=== PATIENT | male | born 1985 | race Caucasian/White ===

== ENCOUNTER 2021-06-25 13:53 | Emergency (ER) | payer MEDICAID, SELFPAY ==
[2021-06-25 13:54] VITALS: BP 128/88; PULSE 107; RESP 18; TEMP 36.6; O2SAT 97; BMI 30.7
--- NOTE | 2021-06-25 14:29 | EX.ED.DYSGE1 ---
HPI History of Present Illness Chief Complaint: Nausea/Vomiting Informant: patient Narrative Narrative: 35-year-old male presenting to the emergency room with vomiting and diarrhea. Patient states he woke up this morning with the symptoms. He denies any URI symptoms or fevers. He notes abdominal cramping but not pain. He notes he had a Sals[place] steak for dinner last night and last time he ate that it made him sick. No recent antibiotics. No exposure to people with the same. PFSH PFS Medical History (Updated 06/25/21 @ 16:[address] Aleks Monaco DO) Alcohol abuse Asthma Irregular heart beat Smoker Substance abuse Home Medications ciprofloxacin HCl [Cipro] 500 mg PO BID #10 tab 06/25/21 [Rx Last Taken Unknown] ondansetron 4 mg PO Q6H PRN PRN #20 tab 06/25/21 [Rx Last Taken Unknown] Allergy/AdvReac Type Severity Reaction Status Date / Time No Known Allergies Allergy Verified 06/25/21 13:55 Social History (Updated 06/25/21 @ 14:[address] Aleks Monaco DO) current gender identity: male Smoking Status: Current every day smoker tobacco type: cigarettes substance use type: does not use ROS ROS ED Constitutional Constitutional ED: Denies chills, fever(s) or weight loss Eyes Eyes: Denies change in vision or diplopia ENT ENT ED: Denies ear pain, rhinorrhea or sore throat Cardiovascular Cardiovascular: Denies chest pain, orthopnea, palpitations or racing heartbeat Respiratory/Chest Respiratory/Chest: Denies cough, dyspnea or orthopnea Gastrointestinal Gastrointestinal: Reports diarrhea, nausea, vomiting and other Details: abdominal cramping Genitourinary Genitourinary ED: Denies dysuria, hematuria or urinary frequency Musculoskeletal Musculoskeletal: Denies arthralgias or myalgias Integumentary Denies abscess or rash Neurologic Neurologic: Denies headache(s) or weakness Psychiatric Psychiatric: Denies anxiety, depression, suicidal ideation or suicidal thoughts Endocrine Endocrinology: Denies polydipsia, polyphagia or polyuria Allergic/Immunologic Allergic/Immunologic ED: Denies mouth swelling, tongue swelling or urticaria EXAM Physical Exam Narrative Exam Narrative: Patient appears that he does not feel well Const Vital Signs: 06/25/21 13:54 06/25/21 15:58 Temperature 98 F Temperature Source Temporal Pulse Rate 107 H 88 Respiratory Rate 18 17 Blood Pressure 128/88 H 131/94 H Blood Pressure Mean 101 106 Pulse Ox 97 98 Oxygen Delivery Method Room Air Room Air Positive well nourished and well developed General Appearance ED: well developed HEENT Reports normocephalic, head/scalp atraumatic, TM's clear and moist mucous membranes Negative for trauma Tympanic Membrane ED: Yes TM's clear Eyes PERRL and EOMs intact bilaterally Neck no lymphadenopathy, supple and no JVD Resp normal respiratory effort and clear to auscultation bilaterally Cardio regular rate and no murmurs Rate: tachycardic GI non-tender Inspection: Negative for abdominal distention Auscultation: hyperactive bowel sounds Palpation: soft and tender RLQ and RUQ; Negative for guarding Back/Spine no CVA tenderness and normal ROM Extremity normal to inspection General Extremety ED: Negative for edema General Extremity: Negative for edema Neuro oriented x3 and CN's II-XII intact bilaterally Sensorium / Orientation: alert Motor Exam: strength 5/5 throughout Psych mental status grossly normal Mood & Affect: Negative for depressed or tearful Skin no rashes or lesions noted and no wounds MDM MDM MDM Narrative Medical decision making narrative: Basic blood work showed a white count of 20.8 with 90.5 neutrophils. CO2 22 lipase is 65. Stool was sent for studies and shows positive fecal leukocytes. CT of the abdomen pelvis was obtained and does not demonstrate any evidence of appendicitis or colitis. Patient received IV fluids and Zofran and has been tolerating oral fluids well. I will write him for Cipro as well as for Zofran. We will await stool cultures. Return if worsening or concerns Lab Data Attestation: I reviewed the patient's lab results. Labs: Laboratory Results - last 24 hr 06/25/21 06/25/21 14:35 14:35 WBC 20.8 H RBC 5.73 Hgb 17.7 H Hct 52.3 MCV 91.3 MCH 30.9 MCHC 33.8 RDW Std Deviation 43.7 RDW Coeff of Kalee 13.0 Plt Count 281 MPV 10.9 Immature Gran % (Auto) 0.500 Neut % (Auto) 90.5 H Lymph % (Auto) 4.3 L [place] % (Auto) 3.8 Eos % (Auto) 0.5 Baso % (Auto) 0.4 Absolute Neuts (auto) 18.8 H Absolute Lymphs (auto) 0.89 Nucleated RBC % 0 Sodium 136 Potassium 4.1 Chloride 106 Carbon Dioxide 22.0 Anion Gap 8 BUN 19 H Creatinine 1.04 Estim Creat Clear Calc 106.59 Est GFR (MDRD) Af Amer 105 Est GFR (MDRD) Non-Af 87 BUN/Creatinine Ratio 18.3 Glucose 133 H Calcium 9.7 Total Bilirubin 0.60 AST 17 ALT 36 Alkaline Phosphatase 132 H Total Protein 8.9 H Albumin 4.4 Globulin 4.5 H Albumin/Globulin Ratio 1.0 Lipase 65 L Radiography Diagnostic Testing: Clinical Impression(s) from Imaging Studies Abdomen/Pelvis CT 06/25/21 15:15 IMPRESSION: Findings which may be consistent with nonspecific gastroenteritis. Electronically Signed: Eren Matthew MD at 16:15 EST Reading Location ID and State: [address] [place] [address] , Service support , Discharge Plan Triage Chief Complaint: Nausea/Vomiting ED Provider: Aleks Monaco Dx/Rx/DC Orders Clinical Impression: Gastroenteritis Instructions: ED Vomiting and Diarrhea ... Prescriptions: New ciprofloxacin HCl [Cipro] 500 mg tablet 500 mg PO BID Qty: 10 RF: 0 ondansetron [ondansetron] 4 MG tablet 4 mg PO Q6H PRN PRN (Reason: Nausea) Qty: 20 RF: 0 Primary Care Provider: Care Physician,No Primary Referrals: Care Physician,No Primary [Primary Care Provider] - Leonardo Little MD [STAFF PHYSICIAN] - As Needed (for primary care) Disposition Disposition: Home, Self Care
[2021-06-25 14:46] LABS: Absolute Lymphocyte Count 0.89 X10^3/uL (0.83-4.51); Absolute Neutrophil Count 18.8 X10^3/uL (2.0-7.7); Basophil# 0.09 X10^3/uL; Basophil% 0.4 % (0-1); Eosinophils% 0.5 % (0-5); Hematocrit 52.3 % (40-54); Hemoglobin 17.7 g/dL (13.0-16.5); Lymphocyte # 0.89 X10^3/ul (0.83-4.51); Lymphocyte % 4.3 % (19-41); Mean Corp Hgb Conc 33.8 g/dL (32-36); Mean Corpuscular Hgb 30.9 pg (27.0-32.0); Mean Corpuscular Volume 91.3 fL (80-94); Mean Platelet Vol. 10.9 fl (6.2-12.0); Monocyte% 3.8 % (0-10); NRBC Flagged by Analyzer 0 % (0-5); Neutrophil % 90.5 % (47-70); POSITIVE MORPHOLOGY YES; Platelet Count 281 K/mm3 (150-450); RBC Distribution Width SD 43.7 fl (35.1-43.9); Red Blood Count 5.73 M/mm3 (4.6-6.2); White Blood Count 20.8 K/mm3 (4.4-11.0)
[2021-06-25] MEDS: 0.9% Normal Saline 1,000 ML 1000 ML IV (14:50)
[2021-06-25] MEDS: Ondansetron 4 MG/2 ML Vial IV (14:50)
[2021-06-25 15:05] LABS: AST(SGOT) 17 U/L (15-37); Alanine Aminotransfer ALT/SGPT 36 U/L (16-61); Albumin, Serum 4.4 g/dL (3.2-5.0); Alkaline Phosphatase 132 U/L (45-117); Anion Gap 8 (5-15); BUN 19 mg/dL (7-18); BUN/Creat Ratio 18.3 RATIO (10-20); Calcium,Total 9.7 mg/dL (8.5-10.1); Chloride 106 mmol/L (98-107); Creatinine, Serum 1.04 mg/dL (0.70-1.30); Differential Indicated SCAN CRITERIA MET; EST Glomerular Filtration Rate 87 mL/min (>60); Est Glom Filt Rate - Afr Amer 105 mL/min (>60); Estimated Creatinine Clearance 106.59 ml/min; Globulin 4.5 g/dL (2.2-4.2); Glucose 133 mg/dL (74-106); Lipase 65 U/L (73-393); Potassium 4.1 mmol/L (3.5-5.1); Protein, Total 8.9 g/dL (6.4-8.2); Sodium Level 136 mmol/L (136-145)
--- NOTE | 2021-06-25 15:15 | CT_ITS ---
STUDY: CT ABDOMEN AND PELVIS WITH CONTRAST REASON FOR EXAM: Male, 35 years old. abdominal pain RADIATION DOSAGE (If Supplied By Facility): CTDIvol = ( 17.03 ) mGy, DLP = ( 1101.28 ) mGycm TECHNIQUE: Transaxial images were obtained from the dome of the diaphragm to the symphysis pubis without oral contrast. IV 100mL Isovue-370 was administered. Sagittal and coronal images were reconstructed. Individualized dose optimization techniques were used for this CT. COMPARISON: None. FINDINGS: The visualized lung bases are unremarkable. The visualized portions of the heart are within normal limits. Normal liver. Normal gallbladder and extrahepatic biliary system. Normal spleen. Normal pancreas. Normal bilateral adrenal glands. Normal right kidney. Normal left kidney. There is very mild thickening of the gastric folds and folds of the proximal to mid small bowel which may be consistent with nonspecific gastroenteritis. No evidence for small bowel obstruction.. Normal colon. The appendix is visualized and appears normal. Normal abdominal aorta. Normal inferior vena cava. Normal retroperitoneum. Incompletely distended thick-walled bladder likely of no significance Normal abdominal wall. Normal osseous structures. CT/Abdomen/Pelvis W IV Cont ONLY IMPRESSION: Findings which may be consistent with nonspecific gastroenteritis. Electronically Signed: Eren Matthew MD at 16:15 EST ,
[2021-06-25 15:58] VITALS: BP 131/94; PULSE 88; RESP 17; O2SAT 98
== END 2021-06-25 16:43 | disposition home or self-care (01) ==
PROVIDERS: Emergency Provider Emergency Medicine; Visit Provider Emergency Medicine
DX: K52.9 Noninfective gastroenteritis and colitis, unspecified (principal); F17.210 Nicotine dependence, cigarettes, uncomplicated
CPT/HCPCS: 74177; 80053; 83630; 83690; 85025; 87177; 87209; 87493; 87506; 96361; 96374; 99284; J7030; Q9967; A4216; J2405

== ENCOUNTER 2021-10-30 10:00 | Emergency (ER) | payer MEDICAID, SELFPAY ==
[2021-10-30] VITALS (8 sets, daily range): BP systolic 137–154; BP diastolic 88–101; PULSE 67–81; RESP 15–20; TEMP 36.7; O2SAT 95–98; BMI 31.8
--- NOTE | 2021-10-30 10:17 | ED.VIS.DYS ---
HPI History of Present Illness Chief Complaint: Shortness of Breath Informant: patient Onset/Context/Timing Onset: Today Context: sudden Timing: Waxes and wanes Quality: Positive for Dyspnea on exertion Worsened by: Exertion Relieved by: other (Drinking water) Associated Symptoms cough and green sputum Chest Pain: Positive for Pressure Narrative Narrative: Patient presents with shortness of breath that began today. Patient states that he woke up with the shortness of breath today. Patient states has been constant throughout the day. Patient states his breathing is worse with any exertion. Patient admits to a pressure sensation in his chest. Patient states that it feels like someone is standing on his chest. Patient states his breathing is worse with any exertion. Patient states it is better whenever he drinks water. Patient admits to a sore throat. Patient denies any fevers or chills. Patient admits to a cough with some dark green sputum. Patient denies any exposures to any sick contacts. PFS PFS Medical History (Updated 10/30/21 @ 13:[address] Leonardo Robbins DO) Alcohol abuse Asthma Irregular heart beat Smoker Substance abuse Home Medications ciprofloxacin HCl [Cipro] 500 mg PO BID #10 tab 06/25/21 [Rx Last Taken Unknown] ondansetron 4 mg PO Q6H PRN PRN #20 tab 06/25/21 [Rx Last Taken Unknown] albuterol sulfate [Ventolin HFA] 1 - 2 puff INHALATION Q4H PRN PRN #1 inhaler 10/30/21 [Rx Last Taken Unknown] Allergy/AdvReac Type Severity Reaction Status Date / Time No Known Allergies Allergy Verified 10/30/21 10:01 Surgical History (Updated 10/30/21 @ 10:[address] Leonardo Robbins DO) Hx of arthroscopic knee surgery Social History Smoking Status: Current every day smoker tobacco type: cigarettes substance use type: does not use ROS ROS ED Constitutional Constitutional ED: Denies chills or fever(s) Eyes Eyes: Denies blurry vision or change in vision ENT ENT ED: Reports sore throat; Denies rhinorrhea Cardiovascular Cardiovascular: Reports chest pain; Denies palpitations Respiratory/Chest Respiratory/Chest: Reports cough and dyspnea Gastrointestinal Gastrointestinal: Denies nausea or vomiting Genitourinary Genitourinary ED: Denies dysuria or hematuria Musculoskeletal Musculoskeletal: Denies back pain or neck pain Integumentary Denies abscess or rash Neurologic Neurologic: Denies headache(s) or weakness Allergic/Immunologic Allergic/Immunologic ED: Denies mouth swelling or urticaria EXAM Physical Exam Const Vital Signs: 10/30/21 10:01 10/30/21 10:04 10/30/21 10:12 Temperature 98.1 F 98.1 F Temperature Source Temporal Temporal Pulse Rate 81 81 Respiratory Rate 20 H 20 H Respiratory Effort Respiratory Depth Respiratory Pattern Blood Pressure 137/88 H 137/88 H Blood Pressure Mean 104 104 Pulse Ox 98 97 97 Oxygen Delivery Method Room Air Room Air Room Air 10/30/21 10:13 10/30/21 10:28 10/30/21 12:09 Temperature Temperature Source Pulse Rate 67 Respiratory Rate 15 16 Respiratory Effort Non-Labored Short of Breath Respiratory Depth Normal Respiratory Pattern Normal Blood Pressure Blood Pressure Mean Pulse Ox Oxygen Delivery Method Room Air 10/30/21 12:14 Temperature Temperature Source Pulse Rate 71 Respiratory Rate 20 H Respiratory Effort Respiratory Depth Respiratory Pattern Blood Pressure 137/92 H Blood Pressure Mean 107 Pulse Ox 95 Oxygen Delivery Method Room Air Positive well nourished and well developed General Appearance ED: well developed HEENT Reports moist mucous membranes Neck supple and no JVD Resp normal respiratory effort Auscultation: diminished lung sounds diffuse Cardio regular rate, regular rhythm and no murmurs GI normal to inspection, nondistended, normoactive bowel sounds and non-tender Palpation: soft Extremity normal to inspection General Extremety ED: Negative for edema or tenderness General Extremity: Negative for edema Neuro oriented x3, CN's II-XII intact bilaterally and no sensory deficits noted Sensorium / Orientation: alert Motor Exam: strength 5/5 throughout Psych mental status grossly normal Skin no rashes or lesions noted MDM MDM MDM Narrative Medical decision making narrative: Patient was given a DuoNeb aerosol here. EKG was obtained. On my interpretation, it showed a normal sinus rhythm with a rate of 61. IN interval, QRS interval, and QTc intervals were all normal. [place] was normal. There are no acute ST or T wave changes. Portable 1 view chest x-ray was obtained. On my interpretation, lung [place] are clear. There is normal cardiac silhouette. Bony thorax is normal. There is no acute process noted. Radiologist also interpreted the x-ray and agrees. CBC and comprehensive metabolic profile were obtained and were essentially within normal limits. Patient felt better after aerosol treatment. Patient was given a prescription for an albuterol inhaler. Patient was instructed to follow-up with his primary care physician in 5 to 7 days. Patient understood and was agreeable with plan. All questions were answered. Lab Data Attestation: I reviewed the patient's lab results. Labs: Laboratory Results - last 24 hr 10/30/21 10/30/21 10:33 10:33 WBC 8.6 RBC 4.70 Hgb 14.5 Hct 43.4 MCV 92.3 MCH 30.9 MCHC 33.4 RDW Std Deviation 43.7 RDW Coeff of Kalee 12.8 Plt Count 240 MPV 10.7 Immature Gran % (Auto) 0.200 Neut % (Auto) 69.2 Lymph % (Auto) 20.1 [place] % (Auto) 7.8 Eos % (Auto) 1.6 Baso % (Auto) 1.1 H Absolute Neuts (auto) 5.9 Absolute Lymphs (auto) 1.72 Nucleated RBC % 0 Sodium 137 Potassium 3.9 Chloride 104 Carbon Dioxide 27.0 Anion Gap 6 BUN 20 H Creatinine 0.85 Estim Creat Clear Calc 129.19 Est GFR (MDRD) Af Amer 132 Est GFR (MDRD) Non-Af 109 BUN/Creatinine Ratio 23.6 H Glucose 100 Calcium 8.6 Total Bilirubin 0.30 AST 24 ALT 35 Alkaline Phosphatase 103 Troponin I High Sens 3 Total Protein 7.4 Albumin 3.7 Globulin 3.7 Albumin/Globulin Ratio 1.0 Radiography Chest X-Ray - ED: 1 View, Read by ED Physician, Read by Radiologist and No Acute Disease Diagnostic Testing: Clinical Impression(s) from Imaging Studies Chest X-Ray 10/30/21 10:40 IMPRESSION: Normal x-ray examination of the chest. Electronically Signed: Rafy Segal MD at 11:08 EDT , EKG Initial EKG: Attestation: I personally reviewed and interpreted this EKG as follows: Interpretation: Sinus Rhythm (61) and No Acute Injury Pattern Discharge Plan Triage Chief Complaint: Shortness of Breath ED Provider: Leonardo Robbins Dx/Rx/DC Orders Clinical Impression: Viral upper respiratory tract infection Instructions: ED URI, Viral, No Abx (Adult) Prescriptions: New albuterol sulfate [Ventolin HFA] 1 INHALER inhaler 1 - 2 puff inhalation Q4H PRN PRN (Reason: Wheezing) Qty: 1 RF: 0 No Action ciprofloxacin HCl [Cipro] 500 mg tablet 500 mg PO BID Qty: 10 RF: 0 ondansetron [ondansetron] 4 MG tablet 4 mg PO Q6H PRN PRN (Reason: Nausea) Qty: 20 RF: 0 Primary Care Provider: Care Physician,No Primary Referrals: Beau Alexis MD [STAFF PHYSICIAN] - 5-7 Days Care Physician,No Primary [Primary Care Provider] - Disposition Disposition: Home, Self Care
--- NOTE | 2021-10-30 10:21 | EKG12_ITS ---
Test Reason : SOB Blood Pressure : / mmHG Vent. Rate : 061 BPM Atrial Rate : 061 BPM P-R Int : 150 ms QRS Dur : 104 ms QT Int : 386 ms P-R-T Axes : 072 032 047 degrees QTc Int : 388 ms Normal sinus rhythm with sinus arrhythmia Normal ECG Confirmed by BLANQUITA VIRGEN, JOSE CRUZ ([id number]), general expeditor YAMILE LEWIS ([id number]) on 11/01/2021 1:46:23 PM Referred By: LUCHO Confirmed By:MARTY JUARES MD
[2021-10-30] MEDS: Ipratropium/Albuterol Sulfate 3 ML AMPUL.NEB INHALATION (10:28)
--- NOTE | 2021-10-30 10:40 | RAD_ITS ---
STUDY: X-RAY CHEST REASON FOR EXAM: Male, 36 years old. Dyspnea TECHNIQUE: Single AP portable view of the chest. COMPARISON: None. FINDINGS: EKG electrodes are seen. The lungs are clear and expanded. There is no demonstrated pleural abnormality. Normal size heart. Normal mediastinum and tonya. Normal visualized pulmonary arteries. Normal visualized aortic arch and descending thoracic aorta. Normal visualized thoracic spine. Normal visualized ribs, clavicles, and shoulders. There is no demonstrated abnormality of the visualized soft tissue structures of the upper abdomen. RAD/Chest 1 View (Portable) IMPRESSION: Normal x-ray examination of the chest. Electronically Signed: Rafy Segal MD at 11:08 EDT ,
[2021-10-30 10:46] LABS: Absolute Lymphocyte Count 1.72 X10^3/uL (0.83-4.51); Absolute Neutrophil Count 5.9 X10^3/uL (2.0-7.7); Basophil# 0.09 X10^3/uL; Basophil% 1.1 % (0-1); Eosinophil# 0.14 X10^3/uL; Eosinophils% 1.6 % (0-5); Hematocrit 43.4 % (40-54); Hemoglobin 14.5 g/dL (13.0-16.5); Lymphocyte # 1.72 X10^3/ul (0.83-4.51); Lymphocyte % 20.1 % (19-41); Mean Corp Hgb Conc 33.4 g/dL (32-36); Mean Corpuscular Hgb 30.9 pg (27.0-32.0); Mean Corpuscular Volume 92.3 fL (80-94); Mean Platelet Vol. 10.7 fl (6.2-12.0); Monocyte# 0.67 X10^3/uL; Monocyte% 7.8 % (0-10); NRBC Flagged by Analyzer 0 % (0-5); Neutrophil # 5.93 X10^3/uL (2.7-7.7); Neutrophil % 69.2 % (47-70); Platelet Count 240 K/mm3 (150-450); RBC Distribution Width CV 12.8 % (11.6-14.6); RBC Distribution Width SD 43.7 fl (35.1-43.9); White Blood Count 8.6 K/mm3 (4.4-11.0)
[2021-10-30 11:07] LABS: AST(SGOT) 24 U/L (15-37); Alanine Aminotransfer ALT/SGPT 35 U/L (16-61); Albumin, Serum 3.7 g/dL (3.2-5.0); Alkaline Phosphatase 103 U/L (45-117); Anion Gap 6 (5-15); BUN 20 mg/dL (7-18); BUN/Creat Ratio 23.6 RATIO (10-20); Calcium,Total 8.6 mg/dL (8.5-10.1); Chloride 104 mmol/L (98-107); Creatinine, Serum 0.85 mg/dL (0.70-1.30); EST Glomerular Filtration Rate 109 mL/min (>60); Est Glom Filt Rate - Afr Amer 132 mL/min (>60); Estimated Creatinine Clearance 129.19 ml/min; Globulin 3.7 g/dL (2.2-4.2); Glucose 100 mg/dL (74-106); Potassium 3.9 mmol/L (3.5-5.1); Protein, Total 7.4 g/dL (6.4-8.2); Sodium Level 137 mmol/L (136-145); Troponin-I HS 3 pg/mL (3.0-78.0)
--- NOTE | 2021-10-30 12:08 | CM.ED ---
Social Work Note Reason for Referral: No PCP SW reviewed chart. Pt has no PCP listed. SW in to speak with pt. Pt confirms he has no PCP. SW provided pt with list of PCP. Gloria Faust MSW, EAR PULL MACHINE OPERATOR
== END 2021-10-30 14:02 | disposition home or self-care (01) ==
PROVIDERS: Emergency Provider Emergency Medicine; Visit Provider Emergency Medicine
DX: J06.9 Acute upper respiratory infection, unspecified (principal); R06.02 Shortness of breath; J45.909 Unspecified asthma, uncomplicated; F17.210 Nicotine dependence, cigarettes, uncomplicated
CPT/HCPCS: 71045; 80053; 84484; 85025; 87428; 93005; 94640; 99284

== ENCOUNTER 2022-12-15 05:12 | Emergency (ER) | payer MEDICAID, SELFPAY ==
[2022-12-15 05:15] VITALS: BP 150/93; PULSE 115; RESP 19; TEMP 36.3; O2SAT 99; BMI 31.1
--- NOTE | 2022-12-15 05:29 | EKG12_ITS ---
Test Reason : CP Blood Pressure : / mmHG Vent. Rate : 110 BPM Atrial Rate : 110 BPM P-R Int : 138 ms QRS Dur : 102 ms QT Int : 322 ms P-R-T Axes : 068 006 043 degrees QTc Int : 435 ms Sinus tachycardia Otherwise normal ECG When compared with ECG of 30-OCT-2021 10:35, Vent. rate has increased BY 49 BPM Confirmed by BROWN VIRGEN, NOLVIA ([id number]), video editor YAMILE LEWIS ([id number]) on 12/23/2022 7:32:12 AM Referred By: IBRAHIMA Confirmed By:NOLVIA DASILVA MD
--- NOTE | 2022-12-15 05:42 | RAD_ITS ---
INDICATION: chest pain EXAMINATION/TECHNIQUE: X-RAY - XR Chest 2 Views COMPARISON: 10/30/2021. FINDINGS: LINES/DEVICES: None. LUNGS: No consolidation or evidence of an effusion. No evidence of edema or a pneumothorax. MEDIASTINUM AND CARDIOVASCULAR STRUCTURES: Cardiac silhouette is normal in size and contour. Mediastinum is unremarkable. BONES AND SOFT TISSUES: No acute abnormality. RAD/Chest PA and Lateral IMPRESSION: No evidence of cardiopulmonary disease. Electronically Signed: Eren Garcia DO at 6:16 EDT ,
[2022-12-15 05:51] LABS: Absolute Lymphocyte Count 1.21 X10^3/uL (0.83-4.51); Absolute Neutrophil Count 22.2 X10^3/uL (2.0-7.7); Basophil# 0.08 X10^3/uL; Basophil% 0.3 % (0-1); Eosinophil# 0.01 X10^3/uL; Hematocrit 44.1 % (40-54); Hemoglobin 14.9 g/dL (13.0-16.5); Lymphocyte # 1.21 X10^3/ul (0.83-4.51); Lymphocyte % 4.8 % (19-41); Mean Corp Hgb Conc 33.8 g/dL (32-36); Mean Corpuscular Hgb 30.7 pg (27.0-32.0); Mean Corpuscular Volume 90.7 fL (80-94); Mean Platelet Vol. 11.3 fl (6.2-12.0); Monocyte# 1.42 X10^3/uL; Monocyte% 5.7 % (0-10); NRBC Flagged by Analyzer 0 % (0-5); Neutrophil # 22.23 X10^3/uL (2.7-7.7); Neutrophil % 88.6 % (47-70); POSITIVE DIFFERENTIAL YES; Platelet Count 227 K/mm3 (150-450); RBC Distribution Width CV 13.3 % (11.6-14.6); RBC Distribution Width SD 44.7 fl (35.1-43.9); Red Blood Count 4.86 M/mm3 (4.6-6.2); White Blood Count 25.1 K/mm3 (4.4-11.0)
[2022-12-15 05:53] LABS: Differential Indicated SCAN CRITERIA MET
[2022-12-15 06:05] LABS: AST(SGOT) 41 U/L (15-37); Alanine Aminotransfer ALT/SGPT 56 U/L (16-61); Albumin, Serum 3.2 g/dL (3.2-5.0); Alkaline Phosphatase 146 U/L (45-117); Anion Gap 8 (5-15); BUN 9 mg/dL (7-18); BUN/Creat Ratio 8.3 RATIO (10-20); Bilirubin, Direct 0.19 mg/dL (0.00-0.30); Calcium,Total 9.1 mg/dL (8.5-10.1); Chloride 100 mmol/L (98-107); Creatinine, Serum 1.09 mg/dL (0.70-1.30); D-Dimer Quantitative (DVT/PE) 0.98 FEU/ug/m (0.27-0.49); EST Glomerular Filtration Rate 81 mL/min (>60); Est Glom Filt Rate - Afr Amer 98 mL/min (>60); Estimated Creatinine Clearance 99.79 ml/min; Globulin 4.7 g/dL (2.2-4.2); Glucose 157 mg/dL (74-106); Lipase 19 U/L (13-75); Magnesium 1.9 mg/dL (1.6-2.6); Potassium 3.4 mmol/L (3.5-5.1); Protein, Total 7.9 g/dL (6.4-8.2); Sodium Level 133 mmol/L (136-145); Troponin-I HS 5 pg/mL (3.0-78.0)
--- NOTE | 2022-12-15 06:06 | CT_ITS ---
INDICATION: chest/abd pain with an elevated d-dimer EXAMINATION: CTA Chest and CTA Abdomen and Pelvis W/ Contrast Injection (and W/O Contrast Images if performed) TECHNIQUE: Helically acquired axial images were obtained of the chest, abdomen, and pelvis with sagittal and coronal reconstructed images. Individualized dose optimization techniques were used for this CT. IV contrast dosage and agent: 100 mL of Isovue 370. Oral contrast: None. COMPARISON: 06/25/2021 CT abdomen/pelvis. No prior chest CT for comparison. FINDINGS: ---Chest: LUNGS, PLEURA AND LARGE AIRWAYS: No consolidation or edema. No pulmonary nodule. No pleural effusion. No pneumothorax. THYROID: Unremarkable. HEART AND PERICARDIUM: Heart is unremarkable. No pericardial effusion. No evidence of coronary artery calcification. MEDIASTINUM AND DAVID: No mediastinal or hilar adenopathy. Esophagus is unremarkable. No hiatal hernia. VESSELS: No thoracic aortic aneurysm or dissection. No pulmonary embolism. BONES: No acute abnormality. ---Abdomen/Pelvis: VESSELS: No abdominal aortic aneurysm or dissection. LIVER: No evidence of a mass. No intrahepatic or extrahepatic biliary duct dilation. GALLBLADDER: No calcified stones. No evidence of cholecystitis. PANCREAS: No focal solid or cystic mass. No evidence of pancreatitis. SPLEEN: Normal. ADRENAL GLANDS: Normal. KIDNEYS AND URETERS: No urinary tract stone. No hydronephrosis or hydroureter. No significant asymmetric perinephric stranding. URINARY BLADDER: Unremarkable. BOWEL: Diverticulosis with no evidence of diverticulitis. Appendix appears normal. No evidence of bowel obstruction. REPRODUCTIVE ORGANS: No evidence of a pelvic mass. PERITONEUM: No intraabdominal free fluid or free air. LYMPH NODES: No pathologically enlarged mesenteric or retroperitoneal lymph nodes. ABDOMINAL WALL: No abdominal or pelvic wall hernia. BONES: No acute abnormality. CT/CTA Chst, Abd, Pel W and/or WO IMPRESSION: 1. No pulmonary embolism. 2. No thoracic or abdominal aortic aneurysm or dissection. 3. No evidence of cardiopulmonary disease. 4. No evidence of an acute intra-abdominal abnormality. Electronically Signed: Eren Garcia DO at 7:05 EDT ,
[2022-12-15 07:05] LABS: Differential Comment SCANNED
--- NOTE | 2022-12-15 07:17 | EDS_ITS ---
HPI History of Present Illness Chief Complaint: Chest Pain Informant: patient Narrative Narrative: Patient is a 37-year-old male with no reported significant past medical history. He states yesterday around 7 PM he started developing generalized muscle aches. He states there is intermittent midsternal chest discomfort that he described more as a pressure sensation. He states there is no associated diaphoresis or shortness of breath. He does admit that there has been bouts of nausea and vomiting but he cannot associated with the chest pain. He denies any recent travel surgery or history of DVT or PE or illicit drug use but with his persistent symptoms has concerns could be cardiac and comes in for evaluation [facility] Medical History (Updated 12/15/22 @ 07:[address] Miguel Montano DO) Alcohol abuse Asthma Irregular heart beat Smoker Substance abuse Home Medications ciprofloxacin HCl 500 mg tablet (Cipro) 500 mg PO BID #10 tabs 06/25/21 [Rx Last Taken Unknown] ondansetron 4 mg disintegrating tablet 4 mg PO Q6H PRN PRN Nausea #20 tabs 06/25/21 [Rx Last Taken Unknown] albuterol sulfate 90 mcg/actuation aerosol inhaler (Ventolin HFA) 1 - 2 puff inhalation Q4H PRN PRN Wheezing ##1 10/30/21 [Rx Last Taken Unknown] hydrocodone-acetaminophen 5-325mg 5mg-325mg 1 tab PO Q6H PRN PRN Pain 3 days #12 TABLETS 12/15/22 [Rx Last Taken Unknown] ondansetron 4 mg disintegrating tablet 4 mg PO TID PRN nausea and vomiting #21 tabs 12/15/22 [Rx Last Taken Unknown] Allergy/AdvReac Type Severity Reaction Status Date / Time No Known Allergies Allergy Verified 10/30/21 10:01 Surgical History (Updated 10/30/21 @ 10:[address] Leonardo Robbins DO) Hx of arthroscopic knee surgery Social History Smoking Status: Former smoker substance use type: does not use ROS ROS ED Constitutional Constitutional ED: Denies chills or fever(s) ENT ENT ED: Denies sore throat Cardiovascular Cardiovascular: Reports chest pain and racing heartbeat; Denies palpitations Respiratory/Chest Respiratory/Chest: Denies cough or dyspnea Gastrointestinal Gastrointestinal: Reports abdominal pain, nausea and vomiting; Denies diarrhea Genitourinary Genitourinary ED: Denies dysuria Musculoskeletal Musculoskeletal: Reports myalgias Integumentary Denies rash Neurologic Neurologic: Denies headache(s) Hematologic/Lymphatic Hematologic/Lymphatic: Denies easy bleeding or easy bruising EXAM Physical Exam Const Vital Signs: 12/15/22 05:15 12/15/22 05:18 Temperature 97.3 F L Temperature Source Temporal Pulse Rate 115 H Respiratory Rate 19 H Respiratory Effort Non-Labored Short of Breath Respiratory Pattern Normal Blood Pressure 150/93 H Blood Pressure Mean 112 Pulse Ox 99 Oxygen Delivery Method Room Air Positive well nourished and well developed General Appearance ED: well developed HEENT Reports moist mucous membranes Eyes PERRL and EOMs intact bilaterally General Eye ED: Negative for scleral icterus Neck supple Neck Narrative: Carotid pulses are equal and symmetrical Chest Wall Chest Narrative: There is reproducible midsternal chest wall pain with palpation without bony deformity or crepitance Resp normal respiratory effort and clear to auscultation bilaterally Cardio regular rhythm Rate: tachycardic and other Other Details: Tachycardic rate with regular rhythm GI non-distended GI Narrative: Soft and nondistended with normal active bowel sounds. There is mild diffuse pain on palpation without voluntary guarding or rigidity Auscultation: normoactive bowel sounds Palpation: soft Extremity normal to inspection Extremity Narrative: No asymmetric edema no pitting edema negative Homans' sign bilaterally Neuro oriented x3, CN's II-XII intact bilaterally and no sensory deficits noted Sensorium / Orientation: alert Motor Exam: strength 5/5 throughout Psych mental status grossly normal Skin no rashes or lesions noted General Skin Exam: Negative for jaundice MDM MDM MDM Narrative Medical decision making narrative: Patient presented to the ER tachycardic and slightly hypertensive. He did state that he previously was on metoprolol secondary to blood pressure and heart rate but has no longer been taking it. He is low risk for cardiovascular disease but with his midsternal chest discomfort described as a pressure a basic cardiac work-up was obtained and as he is tachycardic a D-dimer was added. Blood work revealed an elevated D-dimer and leukocytosis with a white count elevated 25 but otherwise no clinically significant finding. CTA was then obtained of the chest abdomen pelvis secondary to elevated D-dimer and leukocytosis which revealed no acute PE pneumonia or intestinal pathology. Chart review reveals that patient was seen previously for abdominal discomfort and had a high white count that time was consistent with viral syndrome. At this time as patient's cardiac work-up is negative and imaging reveals no PE or dissection or intestinal pathology do not feel there is need for further evaluation in the ER and he can be discharged home with symptomatic care History & Record Review Discussion w/independent historian: Patient Lab Data Attestation: I reviewed the patient's lab results. Labs: Laboratory Results - last 24 hr 12/15/22 05:20 WBC 25.1 H RBC 4.86 Hgb 14.9 Hct 44.1 MCV 90.7 MCH 30.7 MCHC 33.8 RDW Std Deviation 44.7 H RDW Coeff of Kalee 13.3 Plt Count 227 MPV 11.3 Immature Gran % (Auto) 0.600 Neut % (Auto) 88.6 H Lymph % (Auto) 4.8 L [place] % (Auto) 5.7 Eos % (Auto) 0.0 Baso % (Auto) 0.3 Absolute Neuts (auto) 22.2 H Absolute Lymphs (auto) 1.21 Nucleated RBC % 0 Differential Comment SCANNED D-Dimer Quant (PE/DVT) 0.98 H* Sodium 133 L Potassium 3.4 L Chloride 100 Carbon Dioxide 25.0 Anion Gap 8 BUN 9 Creatinine 1.09 Estim Creat Clear Calc 99.79 Est GFR (MDRD) Af Amer 98 Est GFR (MDRD) Non-Af 81 BUN/Creatinine Ratio 8.3 L Glucose 157 H Calcium 9.1 Magnesium 1.9 Total Bilirubin 0.40 Direct Bilirubin 0.19 AST 41 H ALT 56 Alkaline Phosphatase 146 H Troponin I High Sens 5 Total Protein 7.9 Albumin 3.2 Globulin 4.7 H Lipase 19 Radiography Diagnostic Testing: Clinical Impression(s) from Imaging Studies Chest X-Ray 12/15/22 05:42 IMPRESSION: No evidence of cardiopulmonary disease. Electronically Signed: Eren Garcia DO at 6:16 EDT , Chest/Abdomen/Pelvis CTA 12/15/22 06:06 IMPRESSION: 1. No pulmonary embolism. 2. No thoracic or abdominal aortic aneurysm or dissection. 3. No evidence of cardiopulmonary disease. 4. No evidence of an acute intra-abdominal abnormality. Electronically Signed: Eren Garcia DO at 7:05 EDT , Chest x-ray as interpreted by the emergency medicine physician reveals no acute infiltrate pneumothorax or pleural effusion Discharge Plan Triage Chief Complaint: Chest Pain ED Provider: Miguel Montano Dx/Rx/DC Orders Clinical Impression: Myalgia, Nonspecific chest pain, Viral syndrome Instructions: ED Chest Pain, Noncardiac, ED Viral Syndrome (Adult) Prescriptions: New ondansetron 4 mg tablet,disintegrating 4 mg PO TID PRN (Reason: nausea and vomiting) Qty: 21 0RF hydrocodone-acetaminophen 5-325 mg tablet 1 tab PO Q6H PRN PRN (Reason: Pain) 3 Days Qty: 12 0RF No Action ciprofloxacin HCl [Cipro] 500 mg tablet 500 mg PO BID Qty: 10 0RF ondansetron [ondansetron] 4 MG tablet 4 mg PO Q6H PRN PRN (Reason: Nausea) Qty: 20 0RF albuterol sulfate [Ventolin HFA] 1 INHALER inhaler 1 - 2 puff inhalation Q4H PRN PRN (Reason: Wheezing) Qty: 1 0RF Primary Care Provider: Care Physician,No Primary Referrals: Beau Alexis MD [Med Staff - Active Staff] - Care Physician,No Primary [Primary Care Provider] - Disposition Disposition: Home, Self Care
[2022-12-15] MEDS: Ketorolac 30 MG/ML Syringe IV (07:28)
[2022-12-15] MEDS: Ondansetron 4 MG/2 ML Vial IV (07:28)
[2022-12-15] MEDS: Aspirin 325 MG Tablet PO (07:28)
[2022-12-15 07:30] VITALS: BP 141/93; PULSE 98; RESP 16; O2SAT 98
[2022-12-15 07:32] VITALS: BP 145/93; PULSE 91; RESP 16; O2SAT 99
== END 2022-12-15 07:35 | disposition home or self-care (01) ==
PROVIDERS: Emergency Provider Emergency Medicine; Visit Provider Emergency Medicine
DX: R07.89 Other chest pain (principal); R11.2 Nausea with vomiting, unspecified; M79.10 Myalgia, unspecified site; B34.9 Viral infection, unspecified; R10.9 Unspecified abdominal pain; Z87.891 Personal history of nicotine dependence
CPT/HCPCS: 71046; 71275; 74174; 80048; 80076; 83690; 83735; 84484; 85025; 85379; 93005; 96374; 96375; 99284; Q9967; A4216; J2405

== ENCOUNTER 2022-12-16 09:31 | Emergency (ER) | payer MEDICAID, SELFPAY ==
[2022-12-16 09:32] VITALS: BP 137/90; PULSE 118; RESP 18; TEMP 36.8; O2SAT 100; BMI 33.7
--- NOTE | 2022-12-16 09:50 | CT_ITS ---
INDICATION: Odynophagia, throat feels swollen since yesterday, trouble swallowing, smoker, EROH, substance abuse hx. EXAMINATION: CT NECK WITH CONTRAST - CT Soft Tissue Neck W/ Contrast Injection TECHNIQUE: Helically acquired images were obtained of the neck following IV contrast. A radiation dose optimization technique was used for this scan. IV Contrast dosage and agent: 75mL [id number]-370 RADIATION DOSAGE (If Supplied By Facility): CTDIvol = ( 17.68 ) mGy, DLP = ( 591.96 ) mGycm COMPARISON: None FINDINGS: NASOPHARYNX: Unremarkable. SUPRAHYOID NECK: There is some fullness of the bilateral tonsils, slightly more evident on the right. Unremarkable oropharynx, oral cavity, and retropharyngeal space. INFRAHYOID NECK: Unremarkable larynx, hypopharynx, and supraglottis. THYROID: No focal lesions. SALIVARY GLANDS: Unremarkable. LYMPH NODES: Numerous nonspecific to upper normal size bilateral cervical lymph nodes are present. There is a dominant 4 x 1.65 x 1.0 cm lymph node in the left level II-III cervical space. VASCULAR STRUCTURES: Unremarkable. VISUALIZED PORTIONS OF THE ORBITS, PARANASAL SINUSES, MASTOID AIR CELLS AND SKULL BASE: Unremarkable. BONES: Unremarkable. Mild mucoperiosteal thickening in the inferior aspect of the bilateral maxillary antra THORACIC INLET: Clear lung apices. CT/Soft Tissue Neck WITH Contrast IMPRESSION: Findings consistent with tonsillitis, accompanied by some reactive cervical adenopathy. A dominant left level II-III lymph node is present and one might consider follow-up ultrasound after the patient''s tonsillitis has resolved to confirm physiologic involution of this lymph node as well. Electronically Signed: Eugene Banuelos MD at 11:08 EDT Reading Location ID and State: [id number] / Unknown , Service support ,
--- NOTE | 2022-12-16 09:54 | EDS_ITS ---
HPI HPI - GI History of Present Illness Chief Complaint: Foreign Body Narrative Narrative: 37-year-old male past medical history of tachycardia, used to take metoprolol but is no longer taking it presents with foreign body sensation in his throat and odynophagia. He states whenever he tries to swallow something, he is able to swallow it, with pain, however his mouth begins to fill with saliva and he spits that out. He states this has been ongoing since Thursday, 2 days ago. 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 He states his chest pain has resolved, but he had been having problems and pain with swallowing prior to this with his symptoms beginning on Thursday. He states they were more concerned with my EKG. He presents because of continued pain with swallowing mainly on the left side, but sometimes bilaterally. He feels that his airway is still open. PFSH PFS Medical History Alcohol abuse Asthma Irregular heart beat Smoker Substance abuse Home Medications ciprofloxacin HCl 500 mg tablet (Cipro) 500 mg PO BID #10 tabs 06/25/21 [Rx Last Taken Unknown] ondansetron 4 mg disintegrating tablet 4 mg PO Q6H PRN PRN Nausea #20 tabs 06/25/21 [Rx Last Taken Unknown] albuterol sulfate 90 mcg/actuation aerosol inhaler (Ventolin HFA) 1 - 2 puff inhalation Q4H PRN PRN Wheezing ##1 10/30/21 [Rx Last Taken Unknown] hydrocodone-acetaminophen 5-325mg 5mg-325mg 1 tab PO Q6H PRN PRN Pain 3 days #12 TABLETS 12/15/22 [Rx Last Taken Unknown] ondansetron 4 mg disintegrating tablet 4 mg PO TID PRN nausea and vomiting #21 tabs 12/15/22 [Rx Last Taken Unknown] Allergy/AdvReac Type Severity Reaction Status Date / Time No Known Allergies Allergy Verified 12/16/22 09:35 Surgical History Hx of arthroscopic knee surgery Social History Smoking Status: Former smoker substance use type: does not use ROS ROS ED ROS Narrative Constitutional: No fever, no chills. HEENT: Foreign body sensation/sore throat. Positive bilateral neck pain when swallowing. No loss of vision. No rhinorrhea. Cardiovascular: No chest pain. No palpitations. No pedal edema. Respiratory: No cough, no shortness of breath. Abdominal: No abdominal pain. No nausea. No vomiting. Genitourinary: No dysuria. No hematuria. Musculoskeletal: No myalgias. No arthralgias. Neurologic: No headaches. No dizziness. No lightheadedness. Skin: No rash. No change in color. Psychiatric: No depression. No anxiety. EXAM Physical Exam Narrative Exam Narrative: Afebrile. Vital signs noted. HEENT: Normocephalic. Atraumatic. PERRL, EOMI. Neck soft and supple. No point tenderness or step off. Airway patent. No drooling or trismus. Patient was able to pass a bedside swallow of Gatorade, but he did so with reported pain, then spit up saliva afterwards. Cardiovascular: Regular rate and rhythm. No murmurs, rubs, or gallops appreciated. Respiratory: No tachypnea. Lungs clear to auscultation bilaterally. Gastrointestinal: Abdomen soft, nontender, with normoactive bowel sounds. No rebound or guarding. Neurological: Awake. Alert. Nonfocal, nonlateralizing. Skin: No rash. Normal color. No pallor. Musculoskeletal: No pedal edema. Full range of motion extremities. Const Vital Signs: 12/16/22 09:32 12/16/22 10:09 Temperature 98.2 F Temperature Source Temporal Pulse Rate 118 H Respiratory Rate 18 Respiratory Effort Normal Non-Labored Respiratory Pattern Normal Blood Pressure 137/90 H Blood Pressure Mean 105 Pulse Ox 100 Oxygen Delivery Method Room Air MDM MDM MDM Narrative Medical decision making narrative: I do not feel that the patient has a foreign body in his esophagus or food impaction as he is able to swallow his own saliva and Gatorade. However, given his pain, I do feel CT imaging of his neck is indicated. In the differential would be foreign body versus epiglottitis versus retropharyngeal abscess. I did review his chart from the other day/his ED visit where they did a complete work- up mainly for chest pain. He had an elevated D-dimer and CT a of the chest was negative. I will obtain baseline laboratory work again to see if he has an elevated white count, and to check his creatinine again to see if he has become dehydrated as he is not eating as much because of his odynophagia. He was bolused normal saline 1 L intravenously. I reviewed the patient's laboratory work, he has a leukocytosis of 18.1 which is down from previous in the 20s. Hemoglobin normal at 14.4, platelet count normal at 226. Electrolyte panel shows mild dehydration with a sodium of 132 and potassium slightly low at 3.2. BUN is normal at 13 and creatinine 1.18. Glucose is appropriately elevated at 157 with a normal anion gap of 8. I reviewed the CT imaging and reviewed the radiology report which shows that he has tonsillitis, but no airway compromise. He does have cervical lymphadenopathy. There is an enlarged lymph node that may require follow-up after resolution of his tonsillitis. Patient did receive Toradol and a dose of IV Decadron. This is for his tonsillitis/pharyngitis. I obtained a rapid strep which is positive. Hence, in discussion with taking oral antibiotics versus intramuscular, patient does not feel like he could take antibiotics orally for 10 days and prefers the intramuscular injection. He was administered Bicillin 1,200,000 units intramuscularly. At this point in time, I do feel he be discharged safely home with follow-up to a primary care provider. Return instructions to the emergency department were reviewed. Disposition is discharged home in stable condition. History & Record Review Discussion w/independent historian: Patient Additional record(s) reviewed:: Prior ED visit Lab Data Attestation: I reviewed the patient's lab results. Labs: Laboratory Results - last 24 hr 12/16/22 10:05 WBC 18.1 H RBC 4.73 Hgb 14.4 Hct 42.8 MCV 90.5 MCH 30.4 MCHC 33.6 RDW Std Deviation 43.9 RDW Coeff of Kalee 13.2 Plt Count 226 MPV 11.2 Immature Gran % (Auto) 0.800 Neut % (Auto) 83.6 H Lymph % (Auto) 7.0 L [place] % (Auto) 8.1 Eos % (Auto) 0.1 Baso % (Auto) 0.4 Absolute Neuts (auto) 15.1 H Absolute Lymphs (auto) 1.27 Nucleated RBC % 0 Sodium 132 L Potassium 3.2 L Chloride 97 L Carbon Dioxide 27.0 Anion Gap 8 BUN 13 Creatinine 1.18 Estim Creat Clear Calc 92.18 Est GFR (MDRD) Af Amer 90 Est GFR (MDRD) Non-Af 74 BUN/Creatinine Ratio 11.0 Glucose 157 H Calcium 9.1 Radiography Diagnostic Testing: Clinical Impression(s) from Imaging Studies Soft Tissue Neck CT 12/16/22 09:50 IMPRESSION: Findings consistent with tonsillitis, accompanied by some reactive cervical adenopathy. A dominant left level II-III lymph node is present and one might consider follow-up ultrasound after the patient''s tonsillitis has resolved to confirm physiologic involution of this lymph node as well. Electronically Signed: Eugene Banuelos MD at 11:08 EDT Reading Location ID and State: [facility] / Unknown , Service support , Discharge Plan Triage Chief Complaint: Foreign Body ED Provider: Geoff See Dx/Rx/DC Orders Clinical Impression: Odynophagia, Strep throat Instructions: ED Pharyngitis, Strep (Confirmed) Prescriptions: No Action ciprofloxacin HCl [Cipro] 500 mg tablet 500 mg PO BID Qty: 10 0RF ondansetron [ondansetron] 4 MG tablet 4 mg PO Q6H PRN PRN (Reason: Nausea) Qty: 20 0RF albuterol sulfate [Ventolin HFA] 1 INHALER inhaler 1 - 2 puff inhalation Q4H PRN PRN (Reason: Wheezing) Qty: 1 0RF ondansetron 4 mg tablet,disintegrating 4 mg PO TID PRN (Reason: nausea and vomiting) Qty: 21 0RF hydrocodone-acetaminophen 5-325 mg tablet 1 tab PO Q6H PRN PRN (Reason: Pain) 3 Days Qty: 12 0RF Primary Care Provider: Care Physician,No Primary Referrals: Beau Alexis MD [Med Staff - Active Staff] - 3-5 Days if not improving Care Physician,No Primary [Primary Care Provider] - Activity Restrictions/Additional Instructions: Drink plenty of fluids. Keep yourself hydrated. [id number] medications such as Tylenol or ibuprofen for fever and pain. Disposition Disposition: Home, Self Care
[2022-12-16 10:12] LABS: Absolute Lymphocyte Count 1.27 X10^3/uL (0.83-4.51); Absolute Neutrophil Count 15.1 X10^3/uL (2.0-7.7); Basophil# 0.07 X10^3/uL; Basophil% 0.4 % (0-1); Differential Indicated SCAN CRITERIA MET; Eosinophil# 0.01 X10^3/uL; Eosinophils% 0.1 % (0-5); Hematocrit 42.8 % (40-54); Hemoglobin 14.4 g/dL (13.0-16.5); Lymphocyte # 1.27 X10^3/ul (0.83-4.51); Mean Corp Hgb Conc 33.6 g/dL (32-36); Mean Corpuscular Hgb 30.4 pg (27.0-32.0); Mean Corpuscular Volume 90.5 fL (80-94); Mean Platelet Vol. 11.2 fl (6.2-12.0); Monocyte# 1.47 X10^3/uL; Monocyte% 8.1 % (0-10); NRBC Flagged by Analyzer 0 % (0-5); Neutrophil # 15.12 X10^3/uL (2.7-7.7); Neutrophil % 83.6 % (47-70); POSITIVE MORPHOLOGY YES; Platelet Count 226 K/mm3 (150-450); RBC Distribution Width CV 13.2 % (11.6-14.6); RBC Distribution Width SD 43.9 fl (35.1-43.9); Red Blood Count 4.73 M/mm3 (4.6-6.2); White Blood Count 18.1 K/mm3 (4.4-11.0)
[2022-12-16] MEDS: 0.9% Normal Saline 1,000 ML 999 ML IV (10:22)
[2022-12-16 10:25] LABS: Anion Gap 8 (5-15); BUN 13 mg/dL (7-18); Calcium,Total 9.1 mg/dL (8.5-10.1); Chloride 97 mmol/L (98-107); Creatinine, Serum 1.18 mg/dL (0.70-1.30); EST Glomerular Filtration Rate 74 mL/min (>60); Est Glom Filt Rate - Afr Amer 90 mL/min (>60); Estimated Creatinine Clearance 92.18 ml/min; Glucose 157 mg/dL (74-106); Potassium 3.2 mmol/L (3.5-5.1); Sodium Level 132 mmol/L (136-145)
[2022-12-16] MEDS: dexAMETHasone 10 MG/ML Vial IV (11:39)
[2022-12-16] MEDS: Ketorolac 30 MG/ML Syringe IV (11:39)
--- NOTE | 2022-12-16 11:42 | CM.ED ---
Social Work Note Referral Source: case find Referral Reason: no PCP SW met with patient and introduced herself and role as [facility] Can Intake Worker. Patient lying on hospital bed and agreeable to speak with SW. SW inquired about patient's insurance and current PCP. Patient verified insurance and reports no current PCP. SW provided patient with a list of local PCPs in network with patient's insurance and accepting new patients. Patient was receptive towards list and voiced no other needs. SW remains available if needs arise. Dorys Gibson MSW, SEJAL
[2022-12-16] MEDS: Penicillin G Benzathine 1.2 MU/2 ML Syringe IM (12:07)
[2022-12-16 12:33] VITALS: BP 135/84; PULSE 73; RESP 14; O2SAT 98
== END 2022-12-16 12:34 | disposition home or self-care (01) ==
PROVIDERS: Emergency Provider Emergency Medicine; Visit Provider Emergency Medicine
DX: J03.00 Acute streptococcal tonsillitis, unspecified (principal); R59.0 Localized enlarged lymph nodes; E86.0 Dehydration; J45.909 Unspecified asthma, uncomplicated; Z79.899 Other long term (current) drug therapy; Z87.891 Personal history of nicotine dependence
CPT/HCPCS: 70491; 80048; 85025; 87880; 96361; 96372; 96374; 96375; 99283; J7030; Q9967; A4216

== ENCOUNTER 2023-07-23 16:59 | Emergency (ER) | payer OTHER, SELFPAY ==
[2023-07-23 17:00] VITALS: BP 172/99; PULSE 112; RESP 18; TEMP 37.3; O2SAT 100; BMI 32.1
--- NOTE | 2023-07-23 17:08 | EKG12_ITS ---
Test Reason : Blood Pressure : / mmHG Vent. Rate : 105 BPM Atrial Rate : 105 BPM P-R Int : 146 ms QRS Dur : 096 ms QT Int : 342 ms P-R-T Axes : 049 -01 038 degrees QTc Int : 452 ms Sinus tachycardia Otherwise normal ECG Confirmed by BROWN VIRGEN, NOLVIA ([id number]), marketing editor YAMILE LEWIS ([id number]) on 07/24/2023 1:05:02 PM Referred By: Confirmed By:NOLVIA DASILVA MD
--- NOTE | 2023-07-23 17:18 | EDS_ITS ---
HPI <MICHELE aBrakat - Last Filed: 07/23/23 19:17> History of Present Illness Chief Complaint: Chest Pain Narrative Narrative: Patient presenting today due to concerns for electrocution. 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 He reports the pain has not gone away in his chest. He also reports pain in his right arm. He denies any history of blood clots, recent surgery/procedures/travel/immobilization. He denies any cardiac history. PFS <MICHELE Barakat - Last Filed: 07/23/23 19:17> [facility] Medical History Alcohol abuse Asthma Irregular heart beat Smoker Substance abuse Home Medications ciprofloxacin HCl 500 mg tablet (Cipro) 500 mg PO BID #10 tabs 06/25/21 [Rx Last Taken Unknown] ondansetron 4 mg disintegrating tablet 4 mg PO Q6H PRN PRN Nausea #20 tabs 06/25/21 [Rx Last Taken Unknown] albuterol sulfate 90 mcg/actuation aerosol inhaler (Ventolin HFA) 1 - 2 puff inhalation Q4H PRN PRN Wheezing ##1 10/30/21 [Rx Last Taken Unknown] hydrocodone-acetaminophen 5-325mg 5mg-325mg 1 tab PO Q6H PRN PRN Pain 3 days #12 TABLETS 12/15/22 [Rx Last Taken Unknown] ondansetron 4 mg disintegrating tablet 4 mg PO TID PRN nausea and vomiting #21 tabs 12/15/22 [Rx Last Taken Unknown] Allergy/AdvReac Type Severity Reaction Status Date / Time No Known Allergies Allergy Verified 07/23/23 17:00 Surgical History Hx of arthroscopic knee surgery Social History Smoking Status: Current every day smoker tobacco type: cigarettes substance use type: does not use ROS <MICHELE Barakat - Last Filed: 07/23/23 19:17> ROS ED Constitutional Constitutional ED: Denies chills or fever(s) Cardiovascular Cardiovascular: Reports chest pain; Denies palpitations Respiratory/Chest Respiratory/Chest: Denies cough or dyspnea Gastrointestinal Gastrointestinal: Denies abdominal pain, nausea or vomiting Musculoskeletal Musculoskeletal: Reports myalgias; Denies arthralgias Integumentary Denies rash Neurologic Neurologic: Denies paresthesias or weakness EXAM <MICHELE Barakat - Last Filed: 07/23/23 19:17> Physical Exam Const Vital Signs: 07/23/23 17:00 07/23/23 17:16 07/23/23 17:49 Temperature 99.1 F 98 F Temperature Source Temporal Pulse Rate 112 H 97 Respiratory Rate 18 21 H Respiratory Effort Normal Non-Labored Blood Pressure 172/99 H 143/94 H Blood Pressure Mean 123 110 Pulse Ox 100 97 Oxygen Delivery Method Room Air Positive well nourished, well developed and no apparent distress General Appearance ED: well developed HEENT Reports normocephalic and head/scalp atraumatic Mouth ED: Yes moist mucous membranes normal Eyes PERRL and EOMs intact bilaterally Neck full ROM and supple Chest Wall inspection of chest normal Resp normal respiratory effort and clear to auscultation bilaterally Cardio regular rate and regular rhythm GI soft to palpation, non-tender, non-distended and no masses Back/Spine normal ROM and normal to inspection Extremity normal to inspection and full ROM Neuro oriented x3, CN's II-XII intact bilaterally, moves all extremities, no focal motor deficits and no sensory deficits noted Sensorium / Orientation: awake and alert Psych mental status grossly normal and thought process normal Skin no rashes or lesions noted and no wounds <Dr. Jamel Baldwin MD - Last Filed: 07/23/23 19:14> Physical Exam Const Vital Signs: 07/23/23 17:00 07/23/23 17:16 07/23/23 17:49 Temperature 99.1 F 98 F Temperature Source Temporal Pulse Rate 112 H 97 Respiratory Rate 18 21 H Respiratory Effort Normal Non-Labored Blood Pressure 172/99 H 143/94 H Blood Pressure Mean 123 110 Pulse Ox 100 97 Oxygen Delivery Method Room Air MDM <MICHELE Barakat - Last Filed: 07/23/23 19:17> MDM MDM Narrative Medical decision making narrative: Patient presenting due to concerns for a electrical shock that occurred this afternoon. He reports that he was catching a piece of metal that was cut by a plasma cutter and when he went to catch that item he reached out with his right hand and then felt a shocklike sensation that radiated to his chest. There is no burn jarod to his hand. He is well-appearing in no acute distress. Hypertensive initially, this did improve. Symptoms do not sound cardiac in nature. Examination consistent with a muscle strain. Supportive care measures discussed. Return instructions given. He will be discharged home in stable condition and is comfortable with plan. I have personally performed a face to face assessment of the patient and have reviewed the HAY Note. I performed a substantive portion of the visit including all aspects of the following. My corona findings include: History is remarkable patient feeling electrical shock while using a plasma cutter. Patient has no evidence of burn to the gloved finger. He insist that he was shocked. He states he really did not understand because his foot was on the ground. There is no entry exit point right upper or lower extremity. Exam is patient's exam is normal. He was initially tachycardic and slightly hypertensive. Vitals improved with time. His exam is completely normal and his hand reveals no entry or any type of burn. Axillary, median, radial and ulnar function intact. Radial pulses palpable. Medical Decision Making since I was uncertain how a plasma cutter works read up on it. There is no electricity. It is dependent on a ARC due to combustion of nitrogen, oxygen, argon and hydrogen. There is no electricity involved. Patient was made aware of this and in spite of this insist that he was shocked electrically. Other additions or changes: [None] EKG Initial EKG: Comments: 105 bpm, sinus tachycardia, no ST elevation <Dr. Jamel Baldwin MD - Last Filed: 07/23/23 19:14> [facility] Narrative Medical decision making narrative: I have personally performed a face to face assessment of the patient and have reviewed the HAY Note. I performed a substantive portion of the visit including all aspects of the following. My corona findings include: History is remarkable patient feeling electrical shock while using a plasma cutter. Patient has no evidence of burn to the gloved finger. He insist that he was shocked. He states he really did not understand because his foot was on the ground. There is no entry exit point right upper or lower extremity. Exam is patient's exam is normal. He was initially tachycardic and slightly hypertensive. Vitals improved with time. His exam is completely normal and his hand reveals no entry or any type of burn. Axillary, median, radial and ulnar function intact. Radial pulses palpable. Medical Decision Making since I was uncertain how a plasma cutter works read up on it. There is no electricity. It is dependent on a ARC due to combustion of nitrogen, oxygen, argon and hydrogen. There is no electricity involved. Patient was made aware of this and in spite of this insist that he was shocked electrically. Other additions or changes: [None] Discharge Plan Triage Chief Complaint: Chest Pain ED Midlevel Provider: Abbey Coronado ED Provider: Jamel Baldwin Dx/Rx/DC Orders Clinical Impression: Arm pain, right, Chest wall muscle strain, Encounter for medical screening examination Instructions: ED Chest Wall Strain Prescriptions: No Action ciprofloxacin HCl [Cipro] 500 mg tablet 500 mg PO BID Qty: 10 0RF ondansetron [ondansetron] 4 MG tablet 4 mg PO Q6H PRN PRN (Reason: Nausea) Qty: 20 0RF albuterol sulfate [Ventolin HFA] 1 INHALER inhaler 1 - 2 puff inhalation Q4H PRN PRN (Reason: Wheezing) Qty: 1 0RF ondansetron 4 mg tablet,disintegrating 4 mg PO TID PRN (Reason: nausea and vomiting) Qty: 21 0RF hydrocodone-acetaminophen 5-325 mg tablet 1 tab PO Q6H PRN PRN (Reason: Pain) 3 Days Qty: 12 0RF Primary Care Provider: Care Physician,No Primary Referrals: Care Physician,No Primary [Primary Care Provider] - Activity Restrictions/Additional Instructions: Follow-up with PCP and return for any worsening of your symptoms. Disposition Disposition: Home, Self Care Discharge Date/Time: 07/23/23 17:56
[2023-07-23 17:49] VITALS: BP 143/94; PULSE 97; RESP 21; TEMP 36.6; O2SAT 97
--- OUTSIDE RECORDS SUMMARY | 2023-07-23 19:33 | XMS RPT_ITS | CCD ---
Author Name Unknown Address [address] [place] [address] Organization [facility] Care Team Providers Care Heel Attacher Name Role Phone Unavailable Primary Care Provider Unavailabl e Problems Problem Classification Problem Date Documented Da te Episodic/Chronic Other injuries and conditions due to external causes (1 source) Blister; Translations: [Other injury of unspecified body region, initial encounter] Episodic Results Test Name Value Interpretation Reference Range Facil ity Vital Signs Date Time Vital Sign Value Performing Clinician Vinay adamson 01-21-2022 07:55-0400 Body temperature 99 [degF] Anny Hall APRN.AIR DEFENCE OFFICER Work Phone: [facility] 01-21-2022 07:55-0400 Body weight 100.25 kg Anny Hall APRN.AIR DEFENCE OFFICER Work Phone: [facility] 01-21-2022 07:55-0400 Diastolic blood pressure 82 mm[Hg] Anny Hall APRN.AIR DEFENCE OFFICER Work Phone: [facility] 01-21-2022 07:55-0400 Heart rate 105 /min Anny Hall APRN.AIR DEFENCE OFFICER Work Phone: [facility] 01-21-2022 07:55-0400 Respiratory rate 16 /min Anny Hall APRN.AIR DEFENCE OFFICER Work Phone: [facility] 01-21-2022 07:55-0400 SaO2% (BldA) [Mass fraction] 97 % Anny Hall APRN.AIR DEFENCE OFFICER Work Phone: [facility] 01-21-2022 07:55-0400 Systolic blood pressure 124 mm[Hg] Anny Hall APRN.AIR DEFENCE OFFICER Work Phone: [facility] Encounters Encounter Date Encounter Type Care Provider Facility Start: 06-16-2023 End: 06-16-2023 ambulatory Facility:[facility] Start: 01-25-2022 Telephone encounter Anny Hall APRN.CNP Work Phone: [facility] Procedures Date Procedure Procedure Detail Performing Clinician Start: 09-25-2020 Ecg routine ecg w/le ast 12 lds i&r only Plan of Treatment Date Care Activity Detail Author Start: 01-30-2022 Influenza vaccination INFLUENZA (#1) [facility] Start: 01-21-2022 End: 03-23-2022 SYPHILIS TOTAL W/REFLEX [facility] Work Phone: Payers Date Payer Category Payer Unknown [id number] 2021 Medicaid [facility] MEDICAID [facility] [employer] MEDICAID [id number] 2021-Present [phone] [address] [place] [address] Medicaid [id number] Social History Date Type Detail Facility Tobacco smoking stat [facility] Tobacco smoking consumption unknown [facility] Start: 1985 Sex Assigned At Not on file [facility] Start: 01-21-2022 [facility] Smokes tobacco daily [facility] History of tobacco use Cigarette Smoker [facility] Start: 01-21-2022 Cigarettes smoked current (pack per day) - Reported 1 [facility] Start: 01-21-2022 Tobacco use and exposure Smokeless tobacco non-user [facility] Start: 01-11-2022 End: 01-21-2022 Exposure to SARS-CoV-2 (event) Not sure [facility] Work Phone: Note 01-25-2022 Telephone Encounter - Vashti Johnson - 01/25/2022 10:23 AM EDTTelephone Encounter - Anny Hall APRN.CNP - 01/25/2022 9:14 AM EDT Note Date & Type Note Facility 01-25-2022 Miscellaneous Notes Formattin g of this note might be different from the original. Patient given results and verbalized understanding of instructions given. Vashti Johnson negative for monkey pox. Please notify thank you documented in this encounter [facility] Note 01-23-2022 Telephone Encounter - Kat Gatica MA - 01/23/2022 8:20 AM EDTTelephone Encounter - Anny Hall APRN.CNP - 01/22/2022 7:52 PM EDT Note Date & Type Note Facility 01-23-2022 Miscellaneous Notes Formattin g of this note might be different from the original. Verified results with pt. Pt verbalized understanding. Pt has concerns awaiting results and going back to work. Kat Gatica MA Negative for herpes and Varicella Zoster Virus still waiting on other test results Please notify thank you documented in this encounter [facility] Note 01-22-2022 Telephone Encounter - Flor Acharya LPN - 01/22/2022 10:05 AM EDTTelephone Encounter - Meli Palma APRN.CNP - 01/21/2022 7:36 PM EDT Note Date & Type Note Facility 01-22-2022 Miscellaneous Notes Formattin g of this note might be different from the original. Spoke with pt and information listed below given. Pt verbalizes understanding. Flor Acharya LPN Syphilis negative. Please reach out and inform patient. Will reach out with swabs when they return. documented in this encounter [facility] History of Present illness Narrative 01-21-2022 Anny Hall APRN.CNP - 01/21/2022 9:01 AM EDT Note Date & Type Note Facility 01-21-2022 History of Presen t illness Narrative Images from the original note were not included. Subjective Patient came in with complains of burning itching rash on palms. Said it started in the morning and wok him from his sleep. Now he has a few spots on his feet. He was sick yesterday with stomach ache, diarrhea, and sore throat. Denies any other symptoms at this time. Was picking weeds the other day but the rash is no where else on body. Has kids at home but no one else has any symptoms. The history is provided by the patient. No administrative support specialist was used. Review of Systems Constitutional: Negative. Objective Physical Exam Constitutional: Appearance: Normal appearance. Pulmonary: Effort: Pulmonary effort is normal. Musculoskeletal: Hands: Feet: Feet: Comments: Patient does have vesicular blisters on areas marked above for hands and feet. Painful to touch. Skin: General: Skin is warm. Neurological: Mental Status: He is alert. History reviewed. No pertinent past medical history. No past surgical history on file. ALLERGIES Patient has no known allergies. MEDICATIONS No prescriptions on file. No family history on file. Social History Tobacco Use Smoking status: Every Day Packs/day: 1.00 Types: Cigarettes Smokeless tobacco: Never ASSESSMENT/PLAN: 1. Blister - ICD9: 919.2, ICD10: T14.8XXA - MONKEYPOX VIRUS QUALITATIVE PCR - HSV 1,2/VZV AMP MOLECULAR DETECT - SYPHILIS TOTAL W/REFLEX Patient was sent to quarantine until results come back. Anny Hall APRN.AIR DEFENCE OFFICER documented in this encounter [facility] Clinical Note 09-14-2020 Note Date & Type Note Facility 09-14-2020 Note . MICRO - Microbiology PROCEDURE: Stool Culture [^1 *1] SOURCE: Stool BODY SITE: COLLECTED DATE/TIME: 09/11/2020 14:22 EDT RECEIVED DATE/TIME: 09/11/2020 15:42 EDT START DATE/TIME: 09/11/2020 15:42 EDT FREE TEXT SOURCE: FINAL REPORTS Final Report [] Verified Date/Time/Personnel: 09/14/2020 11:16 EDT Normal stool rip present. Salmonella: Negative Shigella: Negative Campylobacter: Negative PRELIMINARY REPORTS Preliminary Report [] Verified Date/Time/Personnel: 09/13/2020 12:47 EDT Normal stool rip present. Negative for stool pathogens at 48 hours. Final report to follow. Interpretive Data ^1: Culture Stool Requests for alternative pathogens including Yersinia, E. coli 0157, C. difficile toxin, Rotavirus, Giardia and parasites require specific requests. Performing Locations *1: This test was performed at: [address], [address] [place] [address] ([place]) Clinical Note 09-12-2020 Note Date & Type Note Facility 09-12-2020 Note . MICRO - Microbiology PROCEDURE: Shiga Toxins 1 and 2 [[id number]: [id number] ^1 *1] SOURCE: Stool BODY SITE: COLLECTED DATE/TIME: 09/11/2020 15:42 EDT RECEIVED DATE/TIME: 09/11/2020 15:42 EDT START DATE/TIME: 09/11/2020 15:42 EDT FREE TEXT SOURCE: FINAL REPORTS Final Report [] Verified Date/Time/Personnel: 09/12/2020 08:46 EDT Absence of Shiga toxin 1 Absence of Shiga toxin 2 Order Comments O1: Shiga Toxins 1 and 2 ordered by lab as part of Culture Stool Panel Interpretive Data ^1: Shiga Toxins 1 and 2 Testing performed by immunochromatography. Performing Locations *1: This test was performed at: [address], [address] [place] [address] ([place]) Clinical Note 09-11-2020 Note Date & Type Note Facility 09-11-2020 Note . MICRO - Microbiology PROCEDURE: Fecal Leukocytes [*1] SOURCE: Stool BODY SITE: COLLECTED DATE/TIME: 09/11/2020 14:22 EDT RECEIVED DATE/TIME: 09/11/2020 15:42 EDT START DATE/TIME: 09/11/2020 15:42 EDT FREE TEXT SOURCE: FINAL REPORTS Final Report [] Verified Date/Time/Personnel: 09/11/2020 19:09 EDT Microscopy: Fecal Leukocytes Absent From our data, approximately 50% of enteroinvasive bacterial pathogens will not be associated with stool WBC's. Performing Locations *1: This test was performed at: [facility], [address] [place] [address], [id number] , [facility] ([place]) History of Present illness Narrative 04-10-2020 Anca Rick MD - 04/10/2020 12:46 PM EST Note Date & Type Note Facility 04-10-2020 History of Present illness Narrative DATE OF SERVICE: 04/08/2020 REASON OF VISIT: Right wrist pain. HISTORY OF PRESENT ILLNESS: This is a 34-year-old male presenting with right wrist pain for the last 4 days. He did some hammering with sledge hammer while working on a car before the pain started. He has pain and swelling, and difficulty moving right wrist. No tingling, numbness or weakness. No other injury. REVIEW OF OTHER SYSTEMS: Normal. ALLERGIES: NKA. MEDICATIONS: Tylenol. PHYSICAL EXAMINATION: On examination, he is awake, alert, not in distress. No dyspnea. Temperature 98.3, blood pressure 142/88, pulse 72, respirations 18, pulse oximetry 97% on room air. Pain score 6 out of 10. Examination of right wrist revealed mild soft tissue swelling around the wrist joint with mild tenderness. Range of motion is maintained but is painful. No tenderness at the snuffbox. Neurovascular status was normal. The hand and the rest of the exam was normal. X-ray of the right wrist did not show any acute changes. ASSESSMENT: Right wrist sprain. PLAN: Clinical findings were discussed with the patient in detail. I instructed him to rest, elevate and ice. Ibuprofen as needed. I supported his wrist with thumb Spica wrist brace. He should not do any heavy lifting for now. Follow up with his doctor for further evaluation and care. Radiologist will review and give final x-ray report. Patient understands and agrees. His questions were answered to his satisfaction. Anca Rick MD [id number] SSI File#: [id number] END OF DOCUMENT / CHANGE LOG FOLLOWS Last Edited By Elec. Signed By Anca Rick MD #[id number] Anca Rick MD #PAWPR on 04/11/2020 15:50 ET on 04/11/2020 15:50 ET Revision Number - 2 ^^^ Verified/Reviewed by 04/11/20 0941 [facility] PATIENT NAME: LUIS PENALOZA [address] MEDICAL REC #: [id number] [place] [address] [facility] REPORT STATCARE PHYSICIAN documented in this encounter [facility] Evaluation note Note Date & Type Note Facility documented in this encounter [facility] Summary Purpose Family History No Family History Records FoundNo Family History Records FoundNo Family History Records Found Advance Directives No Advanced Directives Records FoundNo Advanced Directives Records FoundNo Advanced Directives Records Found Additional Source Comments (unrecognized sect ion and content) No Status Records FoundNo Status Records FoundNo Status Records Found INFORMATION SOURCE (unrecogn ized section and content) DATE CREATED AUTHOR AUTHOR'S ORGANIZ ATION 07/11/2021 [facility] Lois Lainez DATE CREATED AUTHOR AUTHOR'S ORGANIZ ATION 06/18/2023 [facility] Source Comments (unrecognize d section and content) In the event this informatio n is protected by the Federal Confidentiality of Alcohol and Drug Abuse Patient Records regulations: The Federal rules restrict any use of the information to criminally investigate or prosecute any alcohol or drug abuse patient.[facility] the event this information is protected by the Federal Confidentiality of Alcohol and Drug Abuse Patient Records regulations: The Federal rules restrict any use of the information to criminally investigate or prosecute any alcohol or drug abuse patient.[facility] the event this information is protected by the Federal Confidentiality of Alcohol and Drug Abuse Patient Records regulations: The Federal rules restrict any use of the information to criminally investigate or prosecute any alcohol or drug abuse patient.[facility] the event this information is protected by the Federal Confidentiality of Alcohol and Drug Abuse Patient Records regulations: The Federal rules restrict any use of the information to criminally investigate or prosecute any alcohol or drug abuse patient.[facility] the event this information is protected by the Federal Confidentiality of Alcohol and Drug Abuse Patient Records regulations: The Federal rules restrict any use of the information to criminally investigate or prosecute any alcohol or drug abuse patient.[facility] Reason for Visit (unrecogniz ed section and content) Reason Comments Results FOR RECORDS PERTAINING TO PATIENTS WHO ARE OR HAVE BEEN ENROLLED IN A CHEMICAL DEPENDENCY/SUBSTANCEABUSE PROGRAM, SOME INFORMATION MAY BE OMITTED. This clinical summary was aggregated from multiple sources. Caution should be exercised in using it in the provision of clinical care. This summary normalizes information from multiple sources, and as a consequence, information in this document may materially change the coding, format and clinical context of patient data. In addition, data may be omitted in some cases. CLINICAL DECISIONS SHOULD BE BASED ON THE PRIMARY CLINICAL RECORDS. [facility] [employer] [facility]. provides no warranty or guarantee of the accuracy or completeness of information in this document.
== END 2023-07-23 17:56 | disposition home or self-care (01) ==
LOC: ED 17:41
PROVIDERS: Emergency Provider Emergency Medicine; Visit Provider Emergency Medicine
DX: S29.011A Strain of muscle and tendon of front wall of thorax, initial encounter (principal); X58.XXXA Exposure to other specified factors, initial encounter; M79.601 Pain in right arm; J45.909 Unspecified asthma, uncomplicated; F17.210 Nicotine dependence, cigarettes, uncomplicated; Z79.899 Other long term (current) drug therapy
CPT/HCPCS: 93005; 99282; A4216